=== PATIENT | female | born 1970 | race Caucasian/White ===

== ENCOUNTER 2021-06-09 18:40 | Emergency (ER) | payer BC, OTHER ==
--- NOTE | 2021-06-09 19:26 | EDM.PDOC ---
ED HPI GENERAL MEDICAL PROBLEM - General Chief Complaint: Back Pain or Injury Stated Complaint: LOWER BACK PAIN Time Seen by Provider: 06/09/21 19:00 Source of Information: Reports: Patient, Family (spouse at bedside) History Limitations: Reports: No Limitations - History of Present Illness INITIAL COMMENTS - FREE TEXT/NARRATIVE: Presents emergency room today secondary to right lower back pain that she describes as a sharp locking up pain rates is a 10 out of 10 she said the episode started yesterday has been increasing in nature today. She has been using ice and heat as well as took 3 Aleve this morning. Patient states that she had a televisit with the clinic today and was prescribed Flexeril in which she has used 3 doses so far. Patient does report that she has a chronic back pain history she had MRI that showed bulging disks she thinks that thoracic 11 as well as lumbar 4 and 5. She has been seen by spine specialty clinic in [place] as well as referred to pain management in [place] she had lumbar injections in August 2020 as well as December 2020 in physical therapy and has been pretty doing pretty well since then. She states that she was up in [place] yesterday for their business when she picked up a bicycle and she thinks that was the possible trigger. Denies any red flag symptoms--no loss bowel/bladder, no fever, no injury/accident; denies any radicular symptoms PMH--pre-DM2, obesity, hypothyroidism, surgical menopause, chronic low back pain Meds--levothyroxin, estradiaol patch, metformin, flexaril (prescribed today), OTC Alleve NKDA Tob/Drug--denies EtOH--occassional denies having had COVID infection, reports having COVID immunization (Moderna x 2 December 2020) Onset Date: 06/08/21 Duration: Getting Worse Location: Reports: Back lower right back Pain Score (Numeric/FACES): 10 - Related Data Allergies Allergy/AdvReac Type Severity Reaction Status Date / Time No Known Allergies Allergy Verified 06/09/21 19:21 Home Meds: Home Meds Levothyroxine [Synthroid] 100 mcg PO DAILY 07/16/18 [History] estradioL [Climara] 1 patch TOP Q7D 06/09/21 [History] metFORMIN [Glucophage] 250 mg PO BIDMEALS 06/09/21 [History] Past Medical History HEENT History: Reports: Impaired Vision Other HEENT History: wears glasses Genitourinary History: Reports: None 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: Reports: Endometriosis, Other (See Below) Other 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: precancerous cells Endocrine/Metabolic History: Reports: Hypothyroidism, Obesity/BMI 30+ Dermatologic History: Reports: Eczema - Infectious Disease History Infectious Disease History: Reports: Chicken Pox - Past Surgical History HEENT Surgical History: Reports: Oral Surgery, Tonsillectomy, Other (See Below) Other HEENT Surgeries/Procedures: nodules at back of tongue removed surgically Female Surgical History: Reports: Hysterectomy Endocrine Surgical History: Reports: None Dermatological Surgical History: Reports: None Social & Family History - Family History Cardiac: Reports: Aneurysm Neurological: Reports: Alzheimers Disease Oncologic: Reports: Breast, Ovarian, Other (See Below) Other Oncologic Family History: stomach - Caffeine Use Caffeine Use: Reports: Coffee, Soda ED ROS GENERAL - Review of Systems Review Of Systems: Comprehensive ROS is negative, except as noted in HPI. Musculoskeletal: Reports: Back Pain, Muscle Pain, Muscle Stiffness. Denies: Leg Pain ED EXAM,LOWER BACK PAIN/INJURY - Physical Exam Exam: See Below Exam Limited By: No Limitations General Appearance: Alert, WD/WN, Moderate Distress (secondary to acute back pain) Eye Exam: Bilateral Eye: EOMI, Normal Inspection, PERRL Ears: Normal External Exam, Hearing Grossly Normal Nose: Normal Inspection Throat/Mouth: Normal Inspection, Normal Voice, No Airway Compromise Head: Atraumatic, Normocephalic Neck: Normal Inspection, Supple, Non-Tender, Full Range of Motion Respiratory/Chest: No Respiratory Distress, Lungs Clear, Normal Breath Sounds Cardiovascular: Normal Peripheral Pulses, Regular Rate, Rhythm, No Edema, No Murmur GI/Abdominal: Normal Bowel Sounds, Soft, Non-Tender (Female) Exam: Deferred Rectal (Female) Exam: Deferred Back Exam: Decreased Range of Motion, Muscle Spasm Extremities: Normal Inspection, Normal Range of Motion, No Pedal Edema, Normal Capillary Refill Neurological: Alert, Normal Mood/Affect, Normal Plantar Flexion, No Motor/Sensory Deficits Psychiatric: Normal Affect, Normal Mood Skin Exam: Warm, Dry, Intact, Normal Color Course - Vital Signs Text/Narrative:: Cussed with him at time of exam today's ER recommendations to include pain control with salon pass patches ice and/or heat and will provide a prescription for [place] to continue using Flexeril for muscle spasms as well as I will provide a prescription for appropriate dosing of anti-inflammatory/naproxen. I did discuss with patient that she will need to contact her primary care provider on Friday for ER follow-up and further care regarding her chronic low back pain with an acute exacerbation to include possible MRI update as well as referral back to pain management for further care. Patient and spouse verbalized understanding and agreement with plan of care ready for discharge Last Recorded V/S: Last Vital Signs Temp 98.0 F 06/09/21 19:13 Pulse 83 06/09/21 19:13 Resp 16 06/09/21 19:13 BP 147/81 H 06/09/21 19:13 Pulse Ox 96 06/09/21 19:13 - Orders/Labs/Meds Meds: Medications Discontinued Medications Generic Name Dose Route Start Last Admin Trade Name Freq PRN Reason Stop Dose Admin Lidocaine 700 mg 06/09/21 19:46 06/09/21 19:54 Lidocaine 5% 700 Mg Patch TRDERM 06/09/21 19:47 700 mg ONETIME ONE Administration Departure - Departure Time of Disposition: 19:24 Disposition: Home, Self-Care 01 Condition: Good Clinical Impression: Acute right-sided low back pain without sciatica - Discharge Information *PRESCRIPTION DRUG MONITORING PROGRAM REVIEWED*: Yes *COPY OF PRESCRIPTION DRUG MONITORING REPORT IN PATIENT LAINEY: Not Applicable (no prescriptions in the last year of search) Instructions: Back Injury Prevention, [id number], Muscle Strain, [id number], Chronic Back Pain, [id number], Pain Medicine Instructions, [id number] Referrals: Gloria Bhatia CNM [Primary Care Provider] - Forms: ED Department Discharge Additional Instructions: May use ice or heat as you find helpful. You may find heat more helpful. Do not sleep with a heating pad, use heating pad in low setting to prevent any skin shaw. Provided you with a limited prescription of pain medicationspecifically [place] 5/325 to be used for severe pain as per label. 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 As discussed continue with your Flexeril as prescribed from clinic visit today. I have added prescription for anti-inflammatory specifically Naprosyn. Take this as per label do not take any [id number] anti-inflammatory such as ibuprofen (Motrin, Advil) or naproxen (Alleve) use of the same kind of medications as the prescription naproxen I have provided you and could cause kidney damage if used in excessive doses. 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
[2021-06-09] MEDS ORDERED: Lidocaine 5% 700 MG Patch TRDERM ONE (19:46)
== END 2021-06-09 20:00 | disposition home or self-care (01) ==
LOC: JP.ED 18:40
DX: M54.5 Low back pain (principal); E03.9 Hypothyroidism, unspecified; E66.9 Obesity, unspecified; Z68.36 Body mass index [BMI] 36.0-36.9, adult; Z79.899 Other long term (current) drug therapy
CPT/HCPCS: 99283; A9270

== ENCOUNTER 2025-05-14 14:07 | Emergency (ER) | payer BC, OTHER ==
[2025-05-14] MEDS: Lidocaine 1% with EPINEPHrine 1:100,000 50 ML MDV SUBCUT ONE (17:02)
== END 2025-05-14 17:58 | disposition home or self-care (01) ==
LOC: JP.ED 14:07
DX: L02.416 Cutaneous abscess of left lower limb (principal); E66.9 Obesity, unspecified; E03.9 Hypothyroidism, unspecified; M19.90 Unspecified osteoarthritis, unspecified site; Z79.899 Other long term (current) drug therapy; Z79.890 Hormone replacement therapy; Z90.710 Acquired absence of both cervix and uterus; Z68.37 Body mass index [BMI] 37.0-37.9, adult
CPT/HCPCS: 10060; 36415; 82947; 87070; 87077; 87186; 87205; 99283-25